=== PATIENT | male | born 1945 | race African-American/Black ===

== ENCOUNTER 2018-06-20 08:49 | Day surgery (SDC) | payer OTHER ==
[~2018-06-20] VITALS: Ht 180.3 cm; Wt 96.2 kg
[2018-06-20 09:21] LABS: ANION GAP 14.2 mmol/L (8-16); CALCIUM 10.4 mg/dL (8.5-10.1); CREATININE - SERUM 6.7 mg/dL (0.6-1.3); POTASSIUM - SERUM 4.2 mmol/L (3.5-5.1)
[2018-06-20 09:46] LABS: HEMATOCRIT 27.6 % (42.0-54.0); HEMOGLOBIN 9.2 g/dL (13.5-17.5); MCH 29.1 pg (26.0-34.0); MCHC 33.3 g/dL (31.0-37.0); MCV 87.3 fL (80.0-100.0); MEAN PLATELET VOLUME 10.3 fL (7.4-10.4); RBC 3.16 10x6/uL (4.20-6.10); RDW 13.8 % (11.5-14.5); WBC 4.8 10x3/uL (4.8-10.8)
[2018-06-20 10:23] VITALS: Ht 180.3 cm; Wt 96.2 kg
[2018-06-20] MEDS ORDERED: COREG12.5 MG PO (11:00)
[2018-06-20] MEDS ORDERED: LIPITOR20 MG PO (11:00)
[2018-06-20] MEDS ORDERED: GLUCOTROL ER2.5 MG PO (11:01)
[2018-06-20] MEDS ORDERED: HYDRALAZINE HCL25 MG PO (11:01)
[2018-06-20] MEDS ORDERED: MUCINEX600 MG PO (11:01)
[2018-06-20] MEDS ORDERED: COZAAR100 MG PO (11:02)
[2018-06-20] MEDS ORDERED: ADALAT CC90 MG PO (11:02)
[2018-06-20] MEDS ORDERED: RENVELA800 MG PO (11:03)
[2018-06-20] MEDS ORDERED: OMEPRAZOLE20 M1 PO (11:03)
--- NOTE | 2018-06-20 16:20 | NUR ---
1614 PT VERY DROWSY. RESPIRATIONS UNLABORED AND EVEN BUT O2 SAT 88% ON ADMISSION FROM PACU. ON BNC 2L. INCREASED TO 4L/MIN. PT AROUSED ENOUGH TO COUGH DEEP AND BACK TO SLEEP.
--- NOTE | 2018-06-20 17:00 | NUR ---
1645-COMPLAINS OF PAIN RATED 6. CALL IN TO DR VALLE.
--- NOTE | 2018-06-20 17:25 | NUR ---
PER DR VALLE BY PHONE, OKAY TO DISCHARGE PATIENT WHETHER PATIENT VOIDS BEFORE DISCHARGE OR NOT. PATIENT STATES HE ONLY VOIDS 2-3 TIMES A DAY NORMALLY AND VOIDED RIGHT BEFORE SURGERY
--- NOTE | 2018-06-20 19:15 | NUR ---
RIGHT AC PIV DC'D WITH TIP INTACT. DISCHARGE INSTRUCTIONS REVIEWED WITH PATIENT AND SPOUSE, PATIENT DRESSING IN PERSONAL CLOTHING WITH SPOUSE ASSISTANCE
--- NOTE | 2018-06-20 19:35 | NUR ---
PATIENT CONTINUES SIPPING WATER WITHOUT NAUSEA OR VOMITING, HAS CONSUMED ABOUT 8 OUNCES OF WATER AND ABOUT 1/2 CUP OF ICE WITHOUT VOMITING. DISCHARGED HOME VIA WHEELCHAIR TO PRIVATE VEHICLE WITH DAUGHTERS AND SPOUSE
== END 2018-06-20 19:35 | disposition home or self-care (01) ==
LOC: D.OPS 08:49
PROVIDERS: Anesthesiology; ATTEND Surgery
DX: N18.6 End stage renal disease (principal)